=== PATIENT | male | born 1930 | race Caucasian/White ===

== ENCOUNTER 2016-10-13 07:36 | Day surgery (SDC) | payer OTHER ==
[~2016-10-13] VITALS: Ht 182.9 cm; Wt 74.2 kg
[~2016-10-13 07:36] MED LIST: ALTACE2.5 MG PO; ASPIR-TRIN325 M1 PO; ASPIRIN325 MG PO; Altace PO; CIPRO500 MG PO; DEXILANT60 MG PO; Dulcolax PO; Ecotrin PO; FENOFIBRATE145 M1 PO; FISH OIL300 MG PO; FLAGYL250 MG PO; LATANOPROST2.5 ML BOTH EYES; LO-DOSE ASPIRIN81 M2 PO; LOPRESSOR12.5 MG PO; Lumigan 0.03% Ophth BOTH EYES; OMEGA 3-6-91200 MG PO; OYST-CAL D, OS500 M1 PO; PLAVIX75 MG PO; Plavix PO; RAMIPRIL2.5 MG PO; RAMIPRIL5 MG PO; SENOKOT S,PE1 TABLET PO; SIMVASTATIN40 MG PO; THERAGRAN1 TABLET PO; TRILIPIX135 MG PO; Tricor PO; Vicodin,Norco 5/325 PO; Zocor PO
[2016-10-13 16:15] VITALS: BP 162/74
[2016-10-13 20:26] VITALS: BP 159/78
[2016-10-13 20:50] LABS: POINT-OF-CARE METER ID UU14174216
[2016-10-14 00:37] VITALS: BP 154/81
[2016-10-14 04:32] VITALS: BP 128/73
[2016-10-14 08:48] VITALS: BP 129/83
[2016-10-14] MEDS ORDERED: TYLENOL REGULA325 MG PO (11:29)
== END 2016-10-14 13:10 | disposition home or self-care (01) ==
LOC: CATH 07:36 → 2SOUTH 11:27 → 4EAST 11:27
PROVIDERS: Internal Medicine Clinical Cardiac Electrophysiology
PROC: 02H63JZ Insertion of Pacemaker Lead into Right Atrium, Percutaneous Approach (ICD-10-PCS; principal; 2016-10-13)
PROC: 3E0102A Introduction of Anti-Infective Envelope into Subcutaneous Tissue, Open Approach (ICD-10-PCS; principal; 2016-10-13)
PROC: 0JH606Z Insertion of Pacemaker, Dual Chamber into Chest Subcutaneous Tissue and Fascia, Open Approach (ICD-10-PCS; principal; 2016-10-13)
PROC: 02HK3JZ Insertion of Pacemaker Lead into Right Ventricle, Percutaneous Approach (ICD-10-PCS; principal; 2016-10-13)
DX: I49.5 Sick sinus syndrome (principal); I44.0 Atrioventricular block, first degree; I45.10 Unspecified right bundle-branch block; I73.9 Peripheral vascular disease, unspecified; I10 Essential (primary) hypertension; I69.351 Hemiplegia and hemiparesis following cerebral infarction affecting right dominant side; Z95.5 Presence of coronary angioplasty implant and graft; I25.2 Old myocardial infarction; I69.320 Aphasia following cerebral infarction; E78.5 Hyperlipidemia, unspecified; Z79.82 Long term (current) use of aspirin; Z79.02 Long term (current) use of antithrombotics/antiplatelets
CPT/HCPCS: 71010; 82948; 93005; C1785; C1894; C1898; G0378; J0690; J2250; J3010; S0020